=== PATIENT | male | born 1990 | race Two or more races ===

== ENCOUNTER 2023-04-20 07:03 | Emergency (ER) | payer OTHER ==
[~2023-04-20] VITALS: Ht 170.2 cm; Wt 64.4 kg
== END 2023-04-20 08:46 | disposition home or self-care (01) ==
LOC: ER 07:03
DX: F41.9 Anxiety disorder, unspecified (principal); R07.89 Other chest pain; Z88.0 Allergy status to penicillin

== ENCOUNTER 2023-09-14 17:32 | Emergency (ER) | payer OTHER ==
[~2023-09-14] VITALS: Ht 170.2 cm; Wt 56.7 kg
[2023-09-14] MEDS ORDERED: ACID REDUCER20 M1 (17:37)
[2023-09-14] MEDS ORDERED: PEPCID AC10 MG (17:37)
[2023-09-14] MEDS ORDERED: NASAL MIST126 ML (17:37)
[2023-09-14 18:42] LABS: HEMATOCRIT 40.2 % (39.0-48.0); HEMOGLOBIN 13.6 g/dL (13-16.00); MEAN CORPUSCULAR HEMOGLOBIN 30.8 pg (27.00-32.0); MEAN CORPUSCULAR HGB CONC 33.9 g/dl (32.0-36.0); PLATELET COUNT 273 K/uL (150-450); RED BLOOD COUNT 4.42 M/uL (4.00-6.00); RED CELL DISTRIBUTION WIDTH 13.4 % (11.5-14.5)
[2023-09-14 19:11] LABS: ALBUMIN 4.4 gm/dL (3.4-5.0); BILIRUBIN TOTAL 0.42 mg/dL (0.3-1.2); CALCIUM 8.9 mg/dL (8.5-10.1); CREATININE SERUM 1.05 mg/dL (0.70-1.30); GFR 81.85; GLOBULINA 3.5 G/DL (2.4-3.5); POTASSIUM 3.68 mEq/L (3.5-5.1); TOTAL PROTEIN 7.9 gm/dL (6.4-8.2); TSH 3.26 uIU/mL (0.358-3.74)
== END 2023-09-14 20:15 | disposition home or self-care (01) ==
LOC: ER 17:34
PROVIDERS: General Practice
DX: R00.0 Tachycardia, unspecified (principal); Z88.0 Allergy status to penicillin